=== PATIENT | female | born 1985 | race Two or more races ===

== ENCOUNTER 2019-05-05 21:16 | Emergency (ER) | payer OTHER ==
[~2019-05-05] VITALS: Ht 149.9 cm; Wt 64.9 kg
[2019-05-05 21:25] VITALS: BP 157/103
[2019-05-05] MEDS ORDERED: KETOROLAC TROMETHAMINE INJ 60 MG/2 ML VIAL IM ONE ×2 (21:54→22:00)
== END 2019-05-05 22:20 | disposition home or self-care (01) ==
LOC: ER 21:24
DX: B34.9 Viral infection, unspecified (principal); R51 Headache; R59.1 Generalized enlarged lymph nodes
CPT/HCPCS: 99282; J1885